=== PATIENT | male | born 1940 | race Caucasian/White ===

== ENCOUNTER → 2024-07-25 14:00 | Outpatient (BNVA) | payer MEDICAID, MEDICARE, SELFPAY | PROVIDERS: Referring Provider Family Medicine; Visit Provider Internal Medicine | DX: R07.9 Chest pain, unspecified (principal) | CPT/HCPCS: 93005 ==

== ENCOUNTER 2024-08-20 12:55 | Outpatient (CLI) | payer MEDICARE, MEDICAID, SELFPAY ==
--- NOTE | 2024-08-20 13:30 | USCV_ITS ---
Lui Hartley Age: 84 Gender: M : 1940 Exam Date: 08/20/2024 13:35 Ordering Phys: Juan Daniel Dominguez M.D ([email or web address]) Technologist: DAVID Exam Location: [facility] [place] Indication: SOB BP: 102 / 60 HR: 107 Rhythm: Sinus Technical Quality: Adequate MEASUREMENTS (Male / Female) Normal Values 2D ECHO LV Diastolic Diameter PLAX 4.7 cm 4.2 - 5.9 / 3.9 - 5.3 cm IVS Diastolic Thickness 1.5 cm 0.6 - 1.0 / 0.6 - 0.9 cm IVS Systolic Thickness 1.4 cm LVPW Diastolic Thickness 1.8 cm 0.6 - 1.0 / 0.6 - 0.9 cm LVPW Systolic Thickness 2.1 cm LVOT Diameter 2.0 cm LV Ejection Fraction 2D Teich 41.4 % LV Ejection Fraction MOD 4C 55.1 % LV Ejection Fraction MOD 2C 61.8 % LV Ejection Fraction 2C AL 61.1 % LA Diameter 5.2 cm RA Systolic Volume 4C AL 81.0 ml RA Systolic Volume 4C MOD 77.6 ml LA Sys Volume AL 132.9 cm cubed LA Sys Volume Index AL 71.9 cm cubed/m squared Aorta at Sinotubular Diameter 2.6 cm M-MODE LA Ao Ratio MM 1.7 AV Cusp Separation MM 0.9 cm DOPPLER AV Peak Velocity 380.7 cm/s LVOT Peak Velocity 72.0 cm/s AV Area Cont Eq vti 0.7 cm squared AV Area Cont Eq pk 0.6 cm squared MV Peak Velocity 138.0 cm/s MV Area PHT 6.9 cm squared Mitral E to A Ratio 3.8 TR Peak Velocity 195.0 cm/s TR Peak Gradient 15.2 mmHg TV Peak E Velocity 120.0 cm/s PV Peak Velocity 127.0 cm/s FINDINGS Left Ventricle Left ventricle is normal in size. LV systolic function is normal with EF of 55-60%. No regional wall motion abnormalities. Right Ventricle Mildly hypokinetic. Right Atrium Dilated Left Atrium Severely dilated Mitral Valve Severe mitral annular calcification. Mild to moderate mitral regurgitation. Aortic Valve Aortic valve is thickened and calcified. Severe aortic stenosis with aortic valve area of 0.65cm2 and mean gradient across aortic valve of 34mmHg. Moderate aortic regurgitation. Tricuspid Valve Mild tricuspid regurgitation. Insufficient TR jet to calculate RVPS Pulmonic Valve Not well visualized Pericardium Normal Aorta Normal in size IVC Not well visualized CONCLUSIONS LV systolic function is normal with EF of 55-60% RV is mildly hypokinetic with TAPSE of 1.51 Biatrial dilation Mild to moderate mitral regurgitation Severe aortic stenosis with aortic valve area of 0.65cm2 and mean gradient across aortic valve of 34mmHg. Moderate aortic regurgitation Mild tricuspid regurgitation No comparison studies are available. Juan Daniel Dominguez MD (Electronically Signed) Final Date: 29 August 2024 11:12 S
== END 2024-08-20 12:56 | disposition home or self-care (01) ==
LOC: RAD 12:59
PROVIDERS: PCP Registered Nurse; Visit Provider Internal Medicine
DX: R07.9 Chest pain, unspecified (principal); R06.02 Shortness of breath; I35.0 Nonrheumatic aortic (valve) stenosis; R93.1 Abnormal findings on diagnostic imaging of heart and coronary circulation; I34.81 Nonrheumatic mitral (valve) annulus calcification; I34.0 Nonrheumatic mitral (valve) insufficiency; I35.8 Other nonrheumatic aortic valve disorders; I35.1 Nonrheumatic aortic (valve) insufficiency; I07.1 Rheumatic tricuspid insufficiency
CPT/HCPCS: 93306

== ENCOUNTER 2024-09-21 12:08 | Inpatient (IN) | payer MEDICARE, MEDICAID, SELFPAY ==
[2024-09-20] VITALS (55 sets, daily range): BP systolic 92–142; BP diastolic 51–98; PULSE 86–128; RESP 0–29; TEMP 36.1–36.9; O2SAT 90–99; BMI 23.7
--- NOTE | 2024-09-20 07:30 | XACV_ITS ---
Exam Room: 2 Ht: 173 cm Wt: 71 kg BSA: 1.85 m2 Gender: Male : 1940 Any Known Allergies: No known allergies Exam Priority: Routine Procedure(s): Procedure Description: Diagnostic procedure Procedure Description: PCI procedure Procedure Description: Left Heart Catheterization Procedure Description: Right Heart Catheterization Procedure Description: O2 saturation Procedure Description: Drug Eluting Coronary Stent Procedure Description: PTCA Procedure Description: Miscellaneous Procedure Description: ACT Procedure Description: Coronary Angiography Diagnostic Cath Status: Elective Diagnostic Findings * INDICATION: Aortic stenosis. * Left Main has no significant disease. * Circumflex has moderate luminal irregularities. * Right Coronary Artery has diffuse mild to moderate luminal irregularities. Ostial PDA has 70-80% stenosis. * Proximal Left Anterior Descending: severe 70-80% stenosis, SHIVANI: 3 flow. * Aortic valve study: Severe aortic stenosis with mean gradient across aortic valve of 33mmHg and aortic valve area of 0.52cm2. * Coronary angiography shows right dominance. PCI Status: Elective PCI Indication: Other Interventional Findings * Proximal Left Anterior Descendin% stenosis treated with a MDT NC EUPHORA RX [id number] BALLOON, MDT R MARIE 3.5X22 ЮЛИЯ, and MDT NC EUPHORA RX [id number] BALLOON. * Procedure detail: We engaged left main artery with XB 3.5 guide catheter. IV heparin was administered to maintain anticoagulation. Run-through guidewire was used to cross the stenosis and was placed in distal vessel. We predilated the stenosis with 3.5x15mm NC balloon. This was followed by placement of 3.5x22mm Resolute marie ЮЛИЯ. We then post dilated the stent with 3.75x8mm NC balloon. At this time final angiogram was performed that showed excellent stent expansion, SHIVANI 3 flow and no residual stenosis. Guidewire and guide catheter were removed. 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 Conclusions 1. Severe proximal LAD stenosis s/p PCI with 1 stent. Severe PDA stenosis. Medium sized vessel. Medical therapy is appropriate. 2. Severe aortic stenosis. 3. Proximal Left Anterior Descending was treated with a Balloon, Drug Eluting Stent, and Balloon. Recommendations * Continue eliquis and plavix. * We will refer patient for TAVR. * Outpatient cardiology follow up in 2 weeks. Interventional RX Recommendation: PCI w/o planned CABG Diagnostic RX Recommendation: PCI w/o planned CABG Anticoagulation: Heparin Pressures Phase:Rest AO : 110 / 47 ( 74 ) @ 10:07:00 AM 89 / 50 ( 68 ) @ 10:24:00 AM 142 / 72 ( 104 ) @ 10:51:00 AM LV : 118 / 0 / 8 @ 10:24:00 AM RV : 50 / 2 / 8 @ 9:41:00 AM PA : 54 / 27 ( 36 ) @ 9:40:00 AM RA : a wave = 14 v wave = 15 mean = 12 @ 9:42:00 AM PCW : a wave = 29 v wave = 27 mean = 24 @ 9:40:00 AM O2 Content Phase:Rest PA : O2 Content O2: 42.2 @ 10:07:00 AM Saturations Phase:Rest AO : 99 @ 10:24:00 AM PA : 42 @ 10:07:00 AM Cardiac Output Phase:Rest Buzz : 3 @ 10:02:13 AM Buzz Cardiac Index: 2 @ 10::13 AM Flow Phase:Rest Qp : 3 @ 10:02:13 AM Qs : 3 @ 10::13 AM Valves Phase:DefaultPhase AV : 29.0 @ 10:02:13 AM 29.0 @ 10:02:13 AM AV Mean Gradient: 33.0 @ 10:02:13 AM 33.0 @ 10:02:13 AM AV Flow: 134 @ 10::13 AM AV Area: 0.5 @ 10:02:13 AM AV Area Index: 0.28 @ 10:02:13 AM Clinical Evaluation EBL: 5mL-10mL Procedural Details Procedure Consent Obtained. Admit Source: Out Patient. Pre-Procedure Time Out. Identified patient by full name and date of as verbalized by the patient/guarantor. Does the consent match the physician's order: Yes. Accurate & Complete Informed Consent: Yes. Inpatient/Outpatient History & Physical on Chart: Yes. If H&P is completed, is and addenduem needed: Yes; If yes, is the addendum complete: Yes. Visualize and Verify Site with Patient/Guarantor: N/A. Relevant Radiology Images available: N/A. The risks, benefits, and alternatives of sedation and/or procedure were discussed by physician. The patient agrees to continue. Procedure started. [facility] Clinical Fraility Score: 6: Moderately Frail. 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 Correct patient, site and procedure confirmed by cath team. Current diagnosis: Severe Aortic Stenosis. PERRLA. Strong, equal hand grant coordinator bilaterally. Lungs clear x 5 lobes. IV Site on Arrival: 20 gauge in the right anticubital. IV Site on Arrival: 20 gauge in the left forearm. IV Fluids: 0.9% NaCl at KVO. 0 mL infused prior to flue dust laborer. Pre Procedural Pulses: bilateral radial was 2+. Pre Procedural Pulses: bilateral dorsalis pedis was 2+. Pre Procedural Pulses: bilateral posterior tibial was Doppled. right radial was prepped with chloroprep then draped in the usual sterile fashion. right brachial was prepped with chloroprep then draped in the usual sterile fashion. right groin was prepped with chloroprep then draped in the usual sterile fashion. Baseline sample Acquired. HR: 109 BPM. Physician notified. Physician arrived. Physician scrubbed in. Immediate Pre-Procedure Time Out. Correct Patient: Yes; Correct Procedure: Yes; Correct Site: Yes; Correct Patient Position: Yes; Correct Supplies: Yes; Dried Flammable Prep: Yes; Blood Products Available: No;. Lidocaine 1% infiltrated to the right brachial. [place] MON catheter inserted. [place] wire in through swan catheter. Wire out. Pressure measurements obtained. Oximetry samples were obtained. Normal venous range: 60-85%. Normal arterial range: 95-100%. [place] catheter out. Lidocaine 1% infiltrated to the right radial. Arterial access obtained. ABG drawn and sent with respiratory therapy. A 5 [place] citizen TIG catheter in over wire. Unable to advance wire. Wire out. Hand injection through catheter. [place] guidewire in through catheter. Catheter and wire out. Aborting radial procedure due to tortuosity. A TR Band was successful obtaining hemostatsis at the Right Radial artery insertion site. Oxygen started at 2liters/min via nasal canula. Lidocaine 1% infiltrated to the right groin. Arterial access obtained with micropuncture set. A 5 [place] citizen JL4 catheter in over wire. JL4 out over wire. A 5 [place] citizen JR4 catheter in over wire. Wire out. Glidewire in through catheter. Catheter out over wire. 6fr short sheath exchanged for 6fr 45cm flexor sheath over glidewire. A 5 [place] citizen JR4 catheter in over wire. Wire out. Multiple views taken of right coronary artery. Catheter removed over the exchange wire. A 5 [place] citizen JL4 catheter in over wire. Multiple views taken of left coronary artery. standard wire in to reposition catheter. Wire out. Catheter removed over the glide wire. A 5 [place] citizen JR4 catheter in over wire. Glidewire out. Exchange wire in through catheter. Catheter out over wire. 6fr [place] pigtail in over exchange wire. Wire out. Gradient taken: LV 118/-1,8; AO 89/50(68); Mean: 33mmHg, Peak to Peak: 29mmHg, SEP: 25sec/min; HR: 94 BPM; SpO2: 98%. Arpan catheter out over exchange wire. 6 [place] citizen XB 3.5 guide catheter was inserted over the wire. Add inventory: Co-pilot fuel engineer, Endoflator. Exchange wire out. Guide catheter out of exchange wire. 6 [place] citizen XB 4 guide catheter was inserted over the wire. Runthrough guidewire was advanced through the guide catheter to lesion in the prox LAD. Guidewire advanced across lesion. Balloon inserted to lesion in the prox LAD. Inflation number : 1 A MDT NC EUPHORA RX [id number] BALLOON was prepped and advanced across the Prox LAD , then inflated to 14 BUNNY for 0:14 seconds. Balloon out. Stent inserted to lesion in the prox LAD. Inflation Number : 2 A MDT R MARIE 3.5X22 ЮЛИЯ -Lot Number# [id number] EXP 02-23-2027 was prepped and advanced across the Prox LAD. The stent was deployed at 12 BUNNY for 0:15 seconds. Stent balloon out over wire. Balloon inserted to lesion in the prox LAD. Undeployed 3.75 X 15mm NC balloon out over wire. Balloon inserted to lesion in the prox LAD. Inflation number : 3 A MDT NC EUPHORA RX [id number] BALLOON was prepped and advanced across the Prox LAD , then inflated to 12 BUNNY for 0:04 seconds. Inflation number: 4 The MDT NC EUPHORA RX [id number] BALLOON was reinflated across the Prox LAD, to 12 BUNNY for 0:06 seconds. Inflation number: 5 The MDT NC EUPHORA RX 3.12P39UH BALLOON was reinflated across the Prox LAD, to 16 BUNNY for 0:08 seconds. Balloon out. Results checked. Results checked. Wire out. ACT drawn. Results out of range high results. Therapeutic limits - pre-heparin administration 90-150 seconds and monitoring heparin during a vascular procedure >250 seconds. Guide catheter removed over exchange wire. 6fr flexor sheath exchanged for new 6fr 11cm sheath over exchange wire. Wire out. A Suture was successful obtaining hemostatsis at the Right Femoral artery insertion site. Sheath(s) sutured into position with 2-0 silk and sterile 4x4's and Op-site applied over the site. No oozing or signs and symptoms of hematoma noted. Arterial sheath flushed and connected to tranducer and pressure bag with heparinized saline. A Manual Compression was successful obtaining hemostatsis at the Right Brachial Vein insertion site. Post Procedure: Pulses reassessed and unchanged. PERRLA. Strong, equal hand grant coordinator bilaterally. No VTE prophylaxis required. Medication's Wasted: Lidocaine 1% = 2 mL. Medication's Wasted: Nitro = 49.9 mg. Total IV fluids: 75 mL. Post-op diagnosis: Severe , Severe proximal LAD stenosis status post PCI placement of 1 ЮЛИЯ. Complications: None. Estimated blood loss: 5mL-10mL. Responsiveness - Normal response to verbal stimuli; alert and oriented, PERRLA. Airway - Unaffected, no intervention required; spontaneous ventilation. Circulation: W/N/L, pulses unchanged. Nausea/Vomiting: No. ACT drawn. Results 293 seconds. Therapeutic limits - pre-heparin administration 90-150 seconds and monitoring heparin during a vascular procedure >250 seconds. Procedure completed. Patient transferred by bed to ICU. Vital chart was stopped. Access Site Site: Right Brachial Vein Sheath Size: 6 Fr Hemostasis Method: Manual Compression Hemostasis Success: Successful Site: Right Radial artery Sheath Size: 6 Fr Hemostasis Method: TR Band Hemostasis Success: Successful Site: Right Femoral artery Sheath Size: 6 Fr Hemostasis Method: Suture Hemostasis Success: Successful Procedure Medications Start: 8:23 AM Stop: 8:23 AM Medication: Versed Amount: 1 mg Route: I.V. Start: 8:23 AM Stop: 8:23 AM Medication: Fentanyl Amount: 12.5 mcg Route: I.V. Start: 8:46 AM Stop: 8:46 AM Medication: Nitrogylcerin Amount: 100 mcg Route: I.A. Start: 8:50 AM Stop: 8:50 AM Medication: Fentanyl Amount: 12.5 mcg Route: I.V. Start: 8:59 AM Stop: 8:59 AM Medication: Versed Amount: 1 mg Route: I.V. Start: 8:59 AM Stop: 8:59 AM Medication: Fentanyl Amount: 25 mcg Route: I.V. Start: 9:30 AM Stop: 9:30 AM Medication: Heparin Amount: 7000 units Route: I.V. Start: 9:32 AM Stop: 9:32 AM Medication: Fentanyl Amount: 25 mcg Route: I.V. Start: 9:45 AM Stop: 9:45 AM Medication: Fentanyl Amount: 25 mcg Route: I.V. Start: 9:48 AM Stop: 9:48 AM Medication: Heparin Amount: 1000 units Route: I.V. Start: 9:54 AM Stop: 9:54 AM Medication: Plavix Amount: 600 mg Route: P.O. I, the attending physician, have reviewed and verified all procedure medications. Yes, all medications given per verbal order History/Risk Factors Hypertension: No Dyslipidemia: No Peripheral Arterial Disease (PAD): No Myocardial Infarction (MT): No Obesity: No Renal Disease: No Prior Interventions PCI: No CABG: No Valve Surgery: No Report Signatures Finalized by Juan Daniel Dominguez MD on 09/22/2024 10:30 PM
[2024-09-20 07:40] LABS: Basophils # 0.1 10^3/uL (0.0-0.1); Basophils % 1.2 %; Eosinophils # 0.1 10^3/uL (0.0-0.8); Eosinophils % 1.6 %; Hematocrit 31.7 % (37-53); Lymphocytes # 1.5 10^3/uL (0.8-4.8); Lymphocytes % 21.9 %; Mean Corpuscular HGB Conc 29.3 g/dL (30-55); Mean Corpuscular Hemoglobin 22.9 pg (27-33); Mean Corpuscular Volume 78.1 fl (82-101); Mean Platelet Volume 9.7 fL (7.4-10.4); Monocytes # 1.1 10^3/uL (0.2-0.9); Nucleated Red Blood Cells % 0 %; Platelet Count 268 10^3/cmm (157-399); Red Blood Count 4.06 10^6/uL (3.85-5.65); Red Cell Distribution Width 19.7 % (12.1-15.1); White Blood Count 6.94 10^3/uL (3.29-11.43)
[2024-09-20] MEDS: diphenhydrAMINE 50 mg Capsule PO (07:40)
[2024-09-20 07:57] LABS: Anion Gap 18.1 (5-19); Blood Urea Nitrogen 27 mg/dL (8-23); Calcium 9.4 mg/dL (8.5-10.5); Carbon Dioxide 22 mmol/L (22-29); Chloride 105 mmol/L (98-107); Glucose 122 mg/dL (65-115); Osmolality Calculated 298 mOsm/kg (285-295); Potassium 4.1 mmol/L (3.5-5.1); Sodium 141 mmol/L (136-145)
--- NOTE | 2024-09-20 08:20 | W.PM.OPSFHP ---
Same Day Surgery H&P Indication for Procedure/HPI DATE OF PROCEDURE: September 20, 2024 CHIEF COMPLAINT/INDICATIONFOR SURGICAL PROCEDURE: Severe aortic stenosis PREOP DIAGNOSIS: Severe aortic stenosis PLANNED PROCEDURE: Operation Date: 09/20/24 08:30 Proposed Procedures p Cardiac Catheterization - [facility] w/wo Lv & Lisa(Bilateral) - Juan Daniel Dominguez M.D Possible percutaneous coronary intervention 84-year-old man with past medical history of atrial fibrillation, severe aortic stenosis is here for right and left heart cath prior to aortic valve replacement. Has been having worsening shortness of breath. Medications/Allergies* Home Medications ?Medication ?Instructions ?Recorded ?Confirmed ?Type Allergy Relief PO PRN Allergy Symptoms 07/25/24 07/25/24 History Multivitamin Adults 50+ PO 07/25/24 07/25/24 History apixaban 5 mg tablet (Eliquis) 5 mg PO BID 07/25/24 09/20/24 History aspirin 81 mg tablet,delayed 81 mg PO DAILY 07/25/24 09/20/24 History release atorvastatin 80 mg tablet (Lipitor) 80 mg PO DAILY 07/25/24 09/20/24 History diltiazem HCl 120 mg 120 mg PO DAILY 07/25/24 09/20/24 History capsule,extended release 24 hr (Cardizem CD) diphenhydramine 25 2 tab PO BEDTIME PRN Sleep 07/25/24 09/20/24 History mg-acetaminophen 500 mg tablet (Tylenol PM Extra Strength) furosemide 20 mg tablet (Lasix) 20 mg PO QAM 07/25/24 09/20/24 History meclizine 25 mg tablet 25 mg PO TID PRN Nausea 07/25/24 09/20/24 History metamucil PO PRN Constipation 07/25/24 History pantoprazole 40 mg tablet,delayed 40 mg PO DAILY 07/25/24 09/20/24 History release potassium chloride 20 mEq 10 meq PO DAILY 07/25/24 09/20/24 History tablet,extended release (K-Tab) pyridostigmine bromide 60 mg tablet 120 mg PO .AM 07/25/24 09/20/24 History spironolactone 25 mg tablet 25 mg PO DAILY 07/25/24 09/20/24 History tramadol 50 mg tablet 50 mg PO Q8H PRN Pain 07/25/24 09/20/24 History Allergies/Adverse Reactions Allergy/AdvReac Type Severity Reaction Status Date / Time No Known Allergies Allergy Verified 09/20/24 08:13 Current Medications: Generic Name Dose Route Start Last Admin Trade Name Brunilda PRN Reason Stop Dose Admin Sodium Chloride 1,000 mls @ 50 mls/hr 09/20/24 07:30 09/20/24 08:09 Sodium Chloride 0.9% IV 09/21/24 03:29 Not Given .Q20H ONE Pertinent History/Comorbid Conditions* Medical History (Updated 07/28/24 @ 14:54 by Juan Daniel Dominguez M.D) Carotid artery disease CAD (coronary artery disease) Aortic stenosis Atrial fibrillation Social History Smoking and tobacco/nicotine status: current every day tobacco/nicotine user (chewing tobacco) Pertinent Exam Findings alert, oriented x 3 and clear to auscultation bilaterally Irregularly irregular heart rhythm, Grade 4/6 systolic murmur Conscious Sedation Assessment PATIENT ASSESSED PRIOR TO SEDATION, WITH NO CHANGE NOTED: Yes AIRWAY EVAL/ANESTHESIA PLAN: normal airway, ASA III, Local Anesthesia, Risks, benefits & alternatives of sedation and/or procedure discussed and Patient agrees to continue as planned ADDITIONAL INFORMATION: Moderate sedation Recommendations Surgery/Procedure today (Left heart cath with possible percutaneous coronary intervention) Coding Level of Care Code Acute Code for Gladys Fwindiana
[2024-09-20 08:51] LABS: Alveolar-Arterial Oxygen Gradi 1.7 mmHg (5-10); Arterial Blood Gas Hematocrit 27.1 % (42-52); Blood Gas Allen Test Pos; Blood Gas Sample Type Arterial; Carboxyhemoglobin 1.6 %THgb (0.4-20.1); Total Hemoglobin 8.8 g/dL (14-18)
[2024-09-20 08:52] LABS: Alveolar-Arterial Oxygen Gradi 8.8 mmHg (5-10); Arterial Blood Gas Hematocrit 26.4 % (42-52); Blood Gas Allen Test Pos; Blood Gas Sample Type Arterial; Carboxyhemoglobin 1.3 %THgb (0.4-20.1); HGB O2 Sat 41.1 % (95-100); Methemoglobin 1.2 % (0.4-1.5); Total Hemoglobin 8.6 g/dL (14-18)
[2024-09-20 08:55] LABS: Blood Gas Operator Identificat BROMA; Blood Gas Sample Site AO
[2024-09-20 08:56] LABS: Blood Gas Operator Identificat BROMA; Blood Gas Sample Site PA
--- NOTE | 2024-09-20 10:05 | P.PCN_ITS ---
Procedure Note: Date of procedure: 09/20/24 Pre-procedure diagnosis: Severe aortic stenosis Post-procedure diagnosis: other (Severe aortic stenosis/ severe proximal to mid LAD stenosis s/p PCI with 1 stent) Procedure: Proximal to mid LAD has severe stenosis s/p PCI with 1 stent. Severe aortic stenosis. Will refer for TAVR Performing Provider: Juan Daniel Dominguez Estimated blood loss (mL): 10 Complications: None Condition: stable Disposition: floor Coding Level of Care Code Acute Code for [facility] Malissa
[2024-09-20 15:16] LABS: Partial Thromboplastin Time 67.7 SECONDS (23.9-36.7)
[2024-09-20] MEDS: fentaNYL 50 mcg/mL INJ 2mL IVP (16:41)
--- NOTE | 2024-09-20 18:03 | PC.NURSE ---
TR Band on right radial and right femoral sheath removed without complication, see post cardiac cath flowsheet and vital signs as documented.
[2024-09-21] VITALS (51 sets, daily range): BP systolic 90–126; BP diastolic 47–87; PULSE 66–127; RESP 8–38; TEMP 36.4–36.6; O2SAT 84–100; BMI 23.6
[2024-09-21 04:12] LABS: Basophils # 0.1 10^3/uL (0.0-0.1); Basophils % 1.2 %; Eosinophils # 0.1 10^3/uL (0.0-0.8); Eosinophils % 1.7 %; Lymphocytes # 0.7 10^3/uL (0.8-4.8); Lymphocytes % 12.2 %; Mean Corpuscular HGB Conc 28.9 g/dL (30-55); Mean Corpuscular Hemoglobin 22.8 pg (27-33); Mean Corpuscular Volume 78.7 fl (82-101); Mean Platelet Volume 10.1 fL (7.4-10.4); Monocytes % 17.3 %; Neutrophils # 3.85 10^3/uL (1.8-7.7); Neutrophils % 67.4 %; Nucleated Red Blood Cells % 0 %; Platelet Count 232 10^3/cmm (157-399); Red Blood Count 3.56 10^6/uL (3.85-5.65); Red Cell Distribution Width 19.6 % (12.1-15.1); White Blood Count 5.72 10^3/uL (3.29-11.43)
[2024-09-21 04:34] LABS: Anion Gap 14.5 (5-19); Blood Urea Nitrogen 25 mg/dL (8-23); Calcium 8.7 mg/dL (8.5-10.5); Carbon Dioxide 21 mmol/L (22-29); Chloride 109 mmol/L (98-107); Creatinine Clr Calc Pharmacy 57.7867; Glucose 108 mg/dL (65-115); Osmolality Calculated 295 mOsm/kg (285-295); Potassium 4.5 mmol/L (3.5-5.1); Sodium 140 mmol/L (136-145)
[2024-09-21] MEDS: clopidogrel 75 mg Tablet PO (08:41)
[2024-09-21] MEDS: apixaban 5 mg Tablet PO ×2 (08:41→20:00)
[2024-09-21] MEDS: metoprolol succinate ER (24 HR) 50 mg Tablet PO (08:59)
[2024-09-21] MEDS: FUROsemide 10 mg/mL SDV 2mL 20 MG IVP (08:59)
[2024-09-21] MEDS: dilTIAZem ER (24HR) 120 mg Capsule PO (08:59)
[2024-09-21] MEDS: acetaminophen 325 mg Tablet 650 MG PO (10:33)
--- NOTE | 2024-09-21 11:38 | PC.NURSE ---
Patient ambulated unit with use of home walker. Heart rate max 140's briefly, primarily in low 100's wile walking. Patient reports he felt stronger after walking, but does state he feels more short of breath.
[2024-09-21] MEDS: amiodarone 150 MG/100 ML PREMIX 400 MG IV (12:12)
--- NOTE | 2024-09-21 12:45 | P.PN_ITS ---
Subjective 2 Subjective: Patient is short of breath. Atrial fibrillation is uncontrolled and worsens with exertion. Vitals/I&O/Wt Last Vital Signs Temp 97.9 F 09/21/24 11:30 Pulse 112 H 09/21/24 11:00 Resp 31 H 09/21/24 11:00 BP 105/69 09/21/24 11:30 Pulse Ox 97 09/21/24 11:30 O2 Del Method Room Air 09/21/24 11:30 09/20/24 09/21/24 09/21/24 22:59 06:59 14:59 Intake Total 226 / 226 400 / 400 Output Total 200 / 200 200 / 400 740 / 740 Balance -200 / -200 26 / -174 -340 / -340 Weight last 48 hrs Weight 155 lb Weight 156 lb Physical Exam 2 Const: COMMON NORMALS: no acute distress, patient oriented x3 and alert Resp: COMMON NORMALS: normal respiratory effort and clear to auscultation bilaterally AUSCULTATION: clear to auscultation bilaterally Cardio: OTHER: Irregularly irregular, tachycardic, Grade 3/6 systolic murmur Extremity: COMMON NORMALS: no pedal edema Neuro: COMMON NORMALS: patient oriented x3 SENSORIUM/ORIENTATION: Yes alert Data 09/21/24 03:38 09/21/24 03:38 A&P Assessment and plan (1) Aortic stenosis: (2) CAD (coronary artery disease): (3) Atrial fibrillation: Plan Patient had presented for pre-aortic valve replacement right and left heart cath. He was found to have severe proximal LAD stenosis and had PCI with 1 stent. Patient has atrial fibrillation and heart rates are mostly uncontrolled. Started back on metoprolol and cardizem. Starting amiodarone gtt as aortic stenosis is severe and patient will not tolerate fast heart rates. Has been very symptomatic at home as well. Patient discussed with structural heart team at [facility]. Dr Felipe will see patient within a week once discharged. All options discussed with patient and family. Gentle diuresis. Continue eliquis and plavix Close I and Os. Monitor renal function and electrolytes. PDMP PDMP Reviewed: Not Reviewed Attestations 2 Medical Necessity Statement*: Care expected to cross 2 midnights. Patient presented for outpatient cardiac catheterization, underwent PCI, awaiting TAVR but heart rates are uncontrolled in atrial fibrillation and has worsening shortness of breath. Status changed to inpatient for optimization of fluid and atrial fibrillation control. Coding Level of Care Code Acute Code for Chg Fwd Diagnoses Aortic stenosis I35.0 CAD (coronary artery disease) I25.10 Atrial fibrillation I48.91
--- NOTE | 2024-09-21 14:57 | ECG_ITS ---
[facility]: 2024-09-21 Pat Name: Lui Hartley Department: Room: ICU08 Gender: Male Recruitment And Outreach Assistant: : 1940 Requested By: Juan Daniel Dominguez Order Number: [id number] Edinson MD: Sin Snider M.D. Measurements Intervals Biddle Rate: 77 P: 0 ME: 0 QRS: 13 QRSD: 101 T: 60 QT: 417 QTc: 473 Interpretive Statements ATRIAL FIBRILLATION MINIMAL VOLTAGE CRITERIA FOR LVH, CONSIDER NORMAL VARIANT [MEETS CRITERIA IN ONE OF: R(aVL), S(V1), R(V5), R(V5/V6)+S(V1)] NONSPECIFIC ST & T-WAVE ABNORMALITY ABNORMAL RHYTHM ECG Compared to ECG 07/25/2024 14:10:45 Ventricle rate is slow Electronically Signed On 09-22-2024 10:02:26 CDT by Sin Snider M.D. [email or web address]
--- NOTE | 2024-09-21 14:59 | PC.NURSE ---
Patient had 17 beat run of VT, patient reports no symptoms, Dr. Dominguez aware.
[2024-09-21 19:26] LABS: Anion Gap 18.1 (5-19); Blood Urea Nitrogen 26 mg/dL (8-23); Calcium 8.9 mg/dL (8.5-10.5); Carbon Dioxide 21 mmol/L (22-29); Chloride 104 mmol/L (98-107); Creatinine Clr Calc Pharmacy 43.2268; Glucose 235 mg/dL (65-115); Osmolality Calculated 300 mOsm/kg (285-295); Phosphorus 3.9 mg/dL (2.5-4.5); Potassium 4.1 mmol/L (3.5-5.1); Sodium 139 mmol/L (136-145)
[2024-09-21] MEDS: temazepam 15 mg Capsule PO (21:10)
[2024-09-22] VITALS (18 sets, daily range): BP systolic 90–141; BP diastolic 57–91; PULSE 69–111; RESP 12–29; TEMP 36.2–36.6; O2SAT 94–100
--- NOTE | 2024-09-22 02:00 | PC.NURSE ---
Patient has had a couple of pauses on his monitoring, the longest of which thus far 2.[address] Díaz contacted, received orders to pause amio drip.
[2024-09-22 04:42] LABS: Basophils # 0.1 10^3/uL (0.0-0.1); Basophils % 0.9 %; Eosinophils # 0.1 10^3/uL (0.0-0.8); Eosinophils % 1.9 %; Hematocrit 30.4 % (37-53); Lymphocytes % 14.6 %; Mean Corpuscular HGB Conc 28.6 g/dL (30-55); Mean Corpuscular Hemoglobin 23.1 pg (27-33); Mean Corpuscular Volume 80.9 fl (82-101); Mean Platelet Volume 9.6 fL (7.4-10.4); Monocytes % 14.7 %; Neutrophils % 67.6 %; Nucleated Red Blood Cells % 0 %; Platelet Count 234 10^3/cmm (157-399); Red Blood Count 3.76 10^6/uL (3.85-5.65); Red Cell Distribution Width 19.9 % (12.1-15.1); White Blood Count 6.94 10^3/uL (3.29-11.43)
[2024-09-22 05:04] LABS: Anion Gap 18.5 (5-19); Blood Urea Nitrogen 26 mg/dL (8-23); Calcium 8.8 mg/dL (8.5-10.5); Carbon Dioxide 20 mmol/L (22-29); Chloride 104 mmol/L (98-107); Creatinine Clr Calc Pharmacy 47.1565; Glucose 122 mg/dL (65-115); Osmolality Calculated 292 mOsm/kg (285-295); Potassium 4.5 mmol/L (3.5-5.1); Sodium 138 mmol/L (136-145)
[2024-09-22] MEDS: clopidogrel 75 mg Tablet PO (07:57)
[2024-09-22] MEDS: apixaban 5 mg Tablet PO (07:57)
[2024-09-22] MEDS: amiodarone 200 mg Tablet 400 MG PO (07:57)
[2024-09-22] MEDS: metoprolol succinate ER (24 HR) 50 mg Tablet 100 MG PO (07:57)
--- NOTE | 2024-09-22 10:59 | P.DS_ITS ---
Discharge Providers Date of Admission: 09/21/24 12:08 Date of Discharge: September 22, 2024 Attending Provider at Admission: Juan Daniel Dominguez M.D Attending Provider at Discharge: Juan Daniel Dominguez M.D Primary Care Provider: REYNA Sosa Diagnoses at Discharge Discharge Diagnosis (1) Aortic stenosis: Status: Acute (2) CAD (coronary artery disease): Status: Acute (3) Atrial fibrillation: Status: Acute Reason for Visit Reason for Visit: I35.0 Brief History: 84-year-old man with past medical histor y of atrial fibrillation, severe aortic stenosis is here for right and left heart cath prior to aortic valve replacement. Has been having worsening shortness of breath. Hospital Course Hospital Course Patient was found to have severe proximal LAD stenosis and underwent successful revascularization with 1 stent. He had A-fib with RVR and was significantly short of breath. He was admitted to inpatient status for control of atrial fibrillation. Was put on amiodarone gtt. switched to p.o. amiodarone today. Heart rates are better controlled. Stopped Cardizem and uptitrated metoprolol to 100 mg daily. Patient felt much better. I also discussed with structural heart team at [facility] and plan is for him to be seen there within this week. Patient was dicharged home in a stable condition on aspirin and eliquis. 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 Routine Exams 09/20/24 07:30 Taken Laboratory Results WBC 6.94 10^3/uL (3.29-11.43) 09/22/24 04:22 RBC 3.76 10^6/uL (3.85-5.65) L 09/22/24 04:22 Hgb 8.70 g/dL (11.27-16.99) L 09/22/24 04:22 Hct 30.4 % (37-53) L 09/22/24 04:22 MCV 80.9 fl (82-101) L 09/22/24 04:22 MCH 23.1 pg (27-33) L 09/22/24 04:22 MCHC 28.6 g/dL (30-55) L 09/22/24 04:22 RDW 19.9 % (12.1-15.1) H 09/22/24 04:22 Plt Count 234 10^3/cmm (157-399) 09/22/24 04:22 MPV 9.6 fL (7.4-10.4) 09/22/24 04:22 Neut % (Auto) 67.6 % 09/22/24 04:22 Lymph % (Auto) 14.6 % 09/22/24 04:22 Dyer % (Auto) 14.7 % 09/22/24 04:22 Eos % (Auto) 1.9 % 09/22/24 04:22 Baso % (Auto) 0.9 % 09/22/24 04:22 Neut # (Auto) 4.70 10^3/uL (1.8-7.7) 09/22/24 04:22 Lymph # (Auto) 1.0 10^3/uL (0.8-4.8) 09/22/24 04:22 Dyer # (Auto) 1.0 10^3/uL (0.2-0.9) H 09/22/24 04:22 Eos # (Auto) 0.1 10^3/uL (0.0-0.8) 09/22/24 04:22 Baso # (Auto) 0.1 10^3/uL (0.0-0.1) 09/22/24 04:22 Nucleated RBC % (auto) 0 % 09/22/24 04:22 Nucleated RBCs # 0.0 /100WBC 09/22/24 04:22 APTT 67.7 SECONDS (23.9-36.7) H D 09/20/24 14:40 Specimen Type Arterial 09/20/24 08:45 Specimen Type Arterial 09/20/24 08:45 Sample Site Ao 09/20/24 08:45 Sample Site Pa 09/20/24 08:45 Harman Test Pos 09/20/24 08:45 Harman Test Pos 09/20/24 08:45 A-a O2 Gradient 1.7 mmHg (5-10) L 09/20/24 08:45 A-a O2 Gradient 8.8 mmHg (5-10) 09/20/24 08:45 Hematocrit 26.4 % (42-52) L 09/20/24 08:45 Hematocrit 27.1 % (42-52) L 09/20/24 08:45 Hgb O2 Saturation 41.1 % (95-100) L 09/20/24 08:45 Hgb O2 Saturation 96.0 % (95-100) 09/20/24 08:45 Carboxyhemoglobin 1.3 %THgb (0.4-20.1) 09/20/24 08:45 Carboxyhemoglobin 1.6 %THgb (0.4-20.1) 09/20/24 08:45 Methemoglobin 1.0 % (0.4-1.5) 09/20/24 08:45 Methemoglobin 1.2 % (0.4-1.5) 09/20/24 08:45 Total Hemoglobin 8.6 g/dL (14-18) L 09/20/24 08:45 Total Hemoglobin 8.8 g/dL (14-18) L 09/20/24 08:45 O2 Delivery Device Not Reportable 09/20/24 08:45 O2 Delivery Device Not Reportable 09/20/24 08:45 Manual Control Auger Press Operator ID Marcelle 09/20/24 08:45 Manual Control Auger Press Operator ID Marcelle 09/20/24 08:45 Sodium 138 mmol/L (136-145) 09/22/24 04:22 Potassium 4.5 mmol/L (3.5-5.1) 09/22/24 04:22 Chloride 104 mmol/L (98-107) 09/22/24 04:22 Carbon Dioxide 20 mmol/L (22-29) L 09/22/24 04:22 Anion Gap 18.5 (5-19) 09/22/24 04:22 BUN 26 mg/dL (8-23) H 09/22/24 04:22 Creatinine 1.1 mg/dL (0.7-1.2) 09/22/24 04:22 GFR Calculation Not Reportable 09/22/24 04:22 Glucose 122 mg/dL (65-115) H 09/22/24 04:22 Calculated Osmolality 292 mOsm/kg (285-295) 09/22/24 04:22 Calcium 8.8 mg/dL (8.5-10.5) 09/22/24 04:22 Phosphorus 3.9 mg/dL (2.5-4.5) 09/21/24 18:54 Magnesium 2.0 mg/dL (1.7-2.3) 09/21/24 18:54 Vitals Last Vital Signs Temp 97.6 F 09/22/24 07:30 Pulse 110 H 09/22/24 07:30 Resp 20 H 09/22/24 07:30 BP 128/91 09/22/24 07:30 Pulse Ox 94 09/22/24 07:51 O2 Del Method Room Air 09/22/24 02:00 Discharge Plan Discharge Patient Disposition: Home Condition: Stable Prescriptions: New amiodarone [Pacerone] 200 mg Tablet 200 mg PO BID Qty: 120 1RF Rx Instructions: 200 mg BID of amiodarone for 1 week then reduce to 200mg once daily metoprolol succinate 50 mg Tablet Extended Release 24 Hr 100 mg PO DAILY Qty: 90 3RF clopidogrel 75 mg Tablet 75 mg PO DAILY Qty: 90 3RF Continued atorvastatin [Lipitor] 80 mg tablet 80 mg PO DAILY pantoprazole 40 mg tablet,delayed release (DR/EC) 40 mg PO DAILY potassium chloride [K-Tab] 20 mEq tablet extended release 10 meq PO DAILY spironolactone 25 mg tablet 25 mg PO DAILY Multivitamin Adults 50+ 1 tab PO DAILY pyridostigmine bromide 60 mg tablet 120 mg PO .AM furosemide [Lasix] 20 mg tablet 20 mg PO QAM Eliquis 5 mg tablet 5 mg PO BID meclizine 25 mg tablet 25 mg PO TID PRN (Reason: Nausea) tramadol 50 mg tablet 50 mg PO Q8H PRN (Reason: Pain) Allergy Relief 1 tab PO DAILY PRN (Reason: Allergy Symptoms) diphenhydramine-acetaminophen [Tylenol PM Extra Strength] 25-500 mg tablet 2 tab PO BEDTIME PRN (Reason: Sleep) metamucil 1 tab PO DAILY PRN (Reason: Constipation) Discontinued aspirin 81 mg tablet,delayed release (DR/EC) 81 mg PO DAILY diltiazem HCl [Cardizem CD] 120 mg capsule,extended release 24hr 120 mg PO DAILY metoprolol succinate 50 mg tablet extended release 24 hr 25 mg PO DAILY Qty: 90 3RF Discharge Orders: Discharge Order (Routine); Ordered 09/22/24 Ordered By: Juan Daniel Dominguez Referrals: Lori Velez FNP [Nurse Practitioner] - 7-10 days Discharge Diet: Cardiac Discharge Activity: Increase activity as tolerated Patient Instructions: Metoprolol (By mouth), Amiodarone (By mouth), Clopidogrel (By mouth), Coronary Artery Disease (DC), A-fib (Atrial Fibrillation) (DC), Coronary Angioplasty (DC), Aortic Stenosis (DC), Heart Healthy Diet (DC), Carot id Artery Disease (DC), Opioid Safety, Post Angiogram Home Care Instructions Discharge Attestations Time Spent in Discharge Care*: less than 30 min Quality Metrics Clinical Quality Measures [ No reported AMI, CVA or VTE this stay] Coding Level of Care Code Acute Code for Chg Fwd Diagnoses Aortic stenosis I35.0 CAD (coronary artery disease) I25.10 Atrial fibrillation I48.91
--- NOTE | 2024-09-22 11:39 | PC.NURSE ---
Conformed with Dr. Dominguez that [facility] Dr. Felipe's office will contact patient with appointment.
--- NOTE | 2024-09-22 12:17 | PC.NURSE ---
Patient brought to personal vehicle via wheelchair, on room air, with all personal belongings in his possession. Extensive discharge education provided to patient and his daughter on follow up care, new medications, stop medications,and continued medications. Patient and family verbalized understanding. New meds available for [facility] at [place] [id number]. Patient had no questions, requests, or complaints at the time of discharge.
== END 2024-09-22 12:24 | disposition home or self-care (01) | DRG 322 ==
LOC: ICU 09-23 09:13 → CCL 09-23 09:13
PROVIDERS: Admitting Provider Internal Medicine; PCP Registered Nurse; Visit Provider Internal Medicine
DX: I25.10 Atherosclerotic heart disease of native coronary artery without angina pectoris (principal); I35.0 Nonrheumatic aortic (valve) stenosis; I48.91 Unspecified atrial fibrillation; Z79.01 Long term (current) use of anticoagulants; Z79.899 Other long term (current) drug therapy; Z79.82 Long term (current) use of aspirin
CPT/HCPCS: 36415; 80048; 82810; 83735; 84100; 85025; 85347; 85730; 93005; 93460; 96374; 96376; 99152; 99153; A4222; C1725; C1751; C1769; C1874; C1887; C1894; C9600; J0283; J1644; J1940; J2250; J3010; J3490; J7030; J9999; Q0163; Q9967

== ENCOUNTER → 2024-10-31 14:23 | Outpatient (BNVA) | payer MEDICARE, MEDICAID, SELFPAY | PROVIDERS: PCP Registered Nurse; Visit Provider Internal Medicine | DX: I48.91 Unspecified atrial fibrillation (principal); Z79.02 Long term (current) use of antithrombotics/antiplatelets; I25.10 Atherosclerotic heart disease of native coronary artery without angina pectoris; I35.0 Nonrheumatic aortic (valve) stenosis; I77.9 Disorder of arteries and arterioles, unspecified; Z95.5 Presence of coronary angioplasty implant and graft; F17.220 Nicotine dependence, chewing tobacco, uncomplicated | CPT/HCPCS: 99214 ==

== ENCOUNTER → 2025-01-03 11:40 | Outpatient (BNVA) | payer MEDICARE, MEDICAID, SELFPAY | PROVIDERS: PCP Registered Nurse; Visit Provider Nurse Practitioner Family | DX: I25.10 Atherosclerotic heart disease of native coronary artery without angina pectoris (principal); I35.0 Nonrheumatic aortic (valve) stenosis; I48.11 Longstanding persistent atrial fibrillation; Z79.01 Long term (current) use of anticoagulants; K29.71 Gastritis, unspecified, with bleeding; Z95.2 Presence of prosthetic heart valve; Z95.5 Presence of coronary angioplasty implant and graft; F17.220 Nicotine dependence, chewing tobacco, uncomplicated; I48.91 Unspecified atrial fibrillation | CPT/HCPCS: 36415; 80053; 83880; 85025; 93005; 99214 ==

== ENCOUNTER → 2025-01-22 13:30 | Outpatient (BNVA) | payer MEDICARE, MEDICAID, SELFPAY | PROVIDERS: PCP Registered Nurse; Visit Provider Internal Medicine | DX: I25.10 Atherosclerotic heart disease of native coronary artery without angina pectoris (principal); I35.0 Nonrheumatic aortic (valve) stenosis; I48.91 Unspecified atrial fibrillation; Z79.02 Long term (current) use of antithrombotics/antiplatelets; I77.9 Disorder of arteries and arterioles, unspecified; Z95.2 Presence of prosthetic heart valve; F17.220 Nicotine dependence, chewing tobacco, uncomplicated | CPT/HCPCS: 99214 ==